=== PATIENT | female | born 1955 | race Caucasian/White ===

== ENCOUNTER → 2020-03-19 | Outpatient (CLI) | payer MEDICARE, OTHER ==
[~2020-03-19] MED LIST: LISI-334 PO; LISI10TA2 PO; NAPR220C4 PO; OXYM30SP25 NS
--- NOTE | 2020-03-19 12:05 | KCIC ---
EXAM: Lumbar spine MRI without contrast. HISTORY: Lower back pain. TECHNIQUE: Multiplanar, multisequence magnetic resonance imaging of the lumbar spine was performed without contrast. COMPARISON: None. FINDINGS: There is straightening of lumbar lordosis. There is minimal lumbar levoscoliosis. There is minimal anterolisthesis of L4 on S1. There is degenerative endplate remodeling with disc space narrowing, and osteophytosis primarily at the lower lumbar levels. There are multiple endplate Schmorl's nodes. There is no suspicious osseous lesion. There are few small incidental osseous hemangiomas. There is no fracture. The conus terminates at L1. At L1-L2, there is a shallow broad-based posterior central disc protrusion superimposed on a disc bulge and endplate remodeling. There is mild bilateral foraminal stenosis. At L2-L3, there is a disc bulge and endplate remodeling. There is mild bilateral facet arthropathy. There is no stenosis. At L3-L4, there is a shallow broad-based left paracentral disc protrusion and annular tear with 4 mm inferior extrusion. There is also a right foraminal to extra foraminal disc protrusion. These are superimposed on a disc bulge and endplate remodeling. There is mild bilateral facet arthropathy. There is mild bilateral foraminal stenosis with abutment of the exiting L3 nerve roots. There is mild central canal stenosis and effacement of the left lateral recess with abutment of the traversing left nerve roots. At L4-L5, there is a shallow broad-based paracentral to foraminal disc protrusion and annular tear superimposed on a disc bulge and endplate osteophytosis. There is mild bilateral facet arthropathy. There is mild right foraminal stenosis with abutment of the exiting right L4 nerve root. There is mild central canal stenosis with effacement of the right lateral recess and abutment the traversing right nerve roots. At L5-S1, there is a diffuse disc bulge and endplate osteophytosis with bilateral foraminal to extra foraminal disc osteophyte complexes. There is mild bilateral facet arthropathy. There is moderate right and severe left foraminal stenosis with abutment of the exiting left greater than right L5 nerve roots. There is mild central canal stenosis. IMPRESSION: Multilevel degenerative change involving the lumbar spine, described in detail above. This is associated with mild bilateral foraminal stenosis at L1-L2, mild bilateral foraminal and central canal stenosis and left lateral recess narrowing at L3-L4, mild right foraminal and central canal stenosis with narrowing of the right lateral recess at L4-L5 and moderate right and severe left foraminal and mild central canal stenosis at L5-S1. Electronically signed by: Sondra Sanz MD (03/19/2020 12:02 PM) [facility]
== END | disposition home or self-care (01) ==
LOC: KCIC MRI 09:48
PROVIDERS: ATTEND Family Medicine
DX: M47.817 Spondylosis without myelopathy or radiculopathy, lumbosacral region (principal); M40.46 Postural lordosis, lumbar region; M43.17 Spondylolisthesis, lumbosacral region; M25.78 Osteophyte, vertebrae; M51.46 Schmorl's nodes, lumbar region; M48.07 Spinal stenosis, lumbosacral region; M99.53 Intervertebral disc stenosis of neural canal of lumbar region
CPT/HCPCS: 72148

== ENCOUNTER → 2020-05-05 | Outpatient (CLI) | payer MEDICARE, OTHER ==
[~2020-05-05] MED LIST changes: +ACET325T9 PO; +IOHEXOL 180 MG/ML 10 ML VIAL. ONE; +methylPREDNISolone ACETATE 40 MG/ML VIAL. ONE; +methylPREDNISolone ACETATE 80 MG/ML VIAL. ONE
--- NOTE | 2020-05-05 13:01 | PDOC1 ---
INITIAL PAIN CONSULT DATE OF SERVICE: DOS: DATE: 05/05/20 TIME: 12:54 CHIEF COMPLAINT: Chief Complaint: Low back and left lower extremity pain HISTORY OF PRESENT ILLNESS: 64-year-old female presents history of pain low back left lower extremity for about 2 years not the result of any specific injury or accident that she is aware but is getting worse over time with increased pain with walking standing changing positions getting up from a seated position pain all the way to her left leg pressure with walking standing patient which is better with sitting and laying down generally does not awaken her from sleep at night does not affect her bowel bladder control does affect her ability to walk fairly significantly patient reports no overt muscular or motor loss but significant fatigability in the left leg with standing walking more than about 15 to 20 minutes patient has had some physical therapies in the past but nothing recently doing some stretching and strength and exercise on her own is still trying to walk daily although is becoming more more difficult. Patient did have MRI scan lumbar spine showing some significant degenerative changes with mild bilateral fo raminal stenosis L1 to foraminal and central canal stenosis left lateral recess narrowing at L3-4 mild right foraminal and central canal stenosis with narrowing of the right lateral recesses at L4-5 and moderate right and severe left foraminal and mild central canal stenosis at L5-S1. Patient rates her disability rating 0-10 10 being the worst as a 7 with family home responsibilit ies and occupational activities 6 with recreation through social activity to his self-care and to with life support activities. Patient scribes pain is in the low back and the left posterior gluteus posterior lateral thigh lateral anterior thigh anterior medial thigh medial lower leg and knee into the calf as well on the left side. Describes it as constant sharp shooting at times in the lower extremity tingling and burning also aching in the low back. PAST MEDICAL HISTORY: PMH: Cervical cancer status post chemotherapy and radiation, urinary stents PREVIOUS SURGERIES: Past Surgical Hx: Cataract extraction, kidney stent placements every 6 months, bowel perforation and colostomy with takedown 2001 CURRENT MEDICATIONS: Current Meds: Active Scripts Medications Dose Route/Sig Max Daily Dose Days Date Category Tylenol (Acetaminophen) 325 Mg Tablet 1-2 Tab PO QID 05/05/20 Reported ALLERGIES; Allergies: Coded Allergies: Penicillins (Verified Allergy, Unknown, Hives, 03/17/20) erythromycin base (Verified Adverse Reaction, Unknown, GI DISTRESS, 03/17/20) FAMILY HISTORY: Family Hx: Stroke in patient's sister SOCIAL HISTORY: Social Hx: Patient got drug alcohol does not smoke not use any illegal illicit recreational drugs is lives with her spouse lives locally in [facility] REVIEW OF SYSTEMS: ROS: Positive for those items mentioned in history of present illness, all systems are reviewed, otherwise negative, is complete full and well-documented on patient's chart PHYSICAL EXAM: VS: Blood pressure is 176/103 pulse 83 respirations 18 temperature 97.9 F height is 5 feet 1 inches weight is 180 pounds PE: PHYSICAL EXAMINATION: GENERAL: The patient is awake, alert, oriented, appropriate, very pleasant de meanor HEENT: Shows normocephalic, atraumatic. Extraocular movements are intact and symmetrical. Oral cavity: Mucous membranes moist and pink. Dentition is intact. NECK: Shows anterior throat supple without palpable lymphadenopathy noted. Swallow reflex symmetrical. CHEST: Shows normal on inspection. Breath sounds are clear bilaterally, no rales rhonchi or wheezes auscultated. HEART: Shows S1, S2 clear. No murmurs auscultated. ABDOMEN: Soft, nontender, nondistended obese. No palpable organomegaly is noted. No rebound or guarding demonstrated. BACK: Shows spine grossly in the midline. Normal-appearing cervical lordotic curvature. There is slightly increased thoracic kyphosis, some minor flattening of the lumbar lordotic curvature. Lumbar paraspinous muscles show symmetrical on inspection, on palpation shows some moderate tenderness diffusely throughout the upper, middle and lower distribution of the paraspinous muscles bilaterally and also into the lower thoracic paraspinous musculature, firm and tender, but without specific trigger points, without radiation of pain. The patient has good rotational motion of the lumbar spine, both laterally as well as extension and flexion without significant difficulty. No tenderness over the spinous processes, sacrum or sacroiliac regions. EXTREMITIES: Lower extremities show deep tendon reflexes 2+ in the patellar and tendo calcaneus tendons. Motor exam is 5 on a scale of 5 with right dorsiflexion, extension, quadriceps and hamstring flexion and 4/5 on the left. Peripheral pulses are 1+ posterior tibial. No peripheral edema is noted bilaterally. Lower extremities are warm and dry to touch, equal in color and appearance. Straight leg raise noted to be negative bilaterally. Gaenslen's and Rl's maneuvers are negative bilaterally as well. The patient is able to stand, stand on her toes without significant difficulty or loss of balance walks with a slightly favoring gait favoring the left lower extremity only mildly not use any assistive device such as canes or walkers to ambulate. SKIN: Shows warm and dry, good turgor. No edema. No sores, rashes or bruising throughout. IMPRESSION: Impression: 64-year-old female with 2-year history of low back left lower extremity pain in a radicular fashion MRI scan lumbar spine as noted History of cervical cancer Plan: Options discussed with patient including conservative medical management, physical therapies, interventional techniques. Patient would like to pursue interventional techniques we discussed a lumbar epidural steroid injection, using descriptions as well as anatomical models to describe the procedure. Risks were discussed including but not limited to: Bleeding, infection, possibility of epidural hematoma and subsequent neurological compromise, dural puncture, headaches, spinal cord and/or nerve damage, side effects of steroid medication, and poor results regarding pain control. Patient understands wished to proceed. Patient will return to the clinic in approximately 2 weeks for follow-up with calcis return appointment activity level and side effects to be aware of. Procedure is lumbar epidural steroid injection under local anesthetic using sterile prep and drape at the L4-5 level using C-arm fluoroscopic guidance in both AP and lateral views medications injected is 120 mg Depo-Medrol + 10 mL preservative-free normal saline and 2 mL contrast- condition at discharge is stable patient tolerated procedure well had no complications.. KIANA FORBES MD May 05, 2020 13:01
== END ==
LOC: PNCL 09:04
PROVIDERS: ATTEND Anesthesiology
DX: M48.07 Spinal stenosis, lumbosacral region (principal); C53.9 Malignant neoplasm of cervix uteri, unspecified; Z98.890 Other specified postprocedural states; Z88.0 Allergy status to penicillin; Z88.8 Allergy status to other drugs, medicaments and biological substances; Z79.899 Other long term (current) drug therapy
CPT/HCPCS: 62323; J1030; J1040; Q9965

== ENCOUNTER → 2020-05-19 | Outpatient (CLI) | payer MEDICARE, OTHER ==
--- NOTE | 2020-05-19 10:01 | PDOC ---
Progress Note - Pain Clinic Date of Service: DOS: DATE: 05/19/20 TIME: 09:57 Diagnosis: Dx: Lumbar radiculopathy with lumbar degenerative disease and lumbar spinal stenosis History or Present Illness: HPI: 64-year-old female returns follow-up status post lumbar epidural steroid injection x1. Patient reports about near 100% improvement in the low back and left lower extremity pain patient reports is very pleased with her progress has been increasing her distance walking doing household activities sleeping better at night doing work activities traveling with greater ease and comfort patient reports her pain is tingling aching mostly in the posterior left knee and anterior left knee but much better than it was patient reports her pain is a 2 on a scale of 10 is average over the past week 2 is worse 0 its least is a 2 today. Patient reports no new motor or sensory deficits no new bowel or bladder incontinence is increasing her activity with much greater ease and comfort without any new bowel or bladder incontinence or other complaints. Physical Exam: VS: Blood pressure is 161/85 pulse 68 respirations 18 temperature 98.2 F height is 5 foot 1 inches weight is 1 8 0 pounds PE: PHYSICAL EXAMINATION: GENERAL: The patient is awake, alert, oriented, appropriate, very pleasant demeanor HEENT: Shows normocephalic, atraumatic. Extraocular movements are intact and symmetrical. NECK: Shows anterior throat supple without palpable lymphadenopathy noted. Swallow reflex symmetrical. CHEST: Shows normal on inspection. Breath sounds are clear bilaterally, no rales rhonchi or wheezes. HEART: Shows S1, S2 clear. No murmurs auscultated. ABDOMEN: Soft, nontender, nondistended, obese. No palpable organomegaly is noted. No rebound or guarding demonstrated. BACK: Shows spine grossly in the midline. Normal-appearing cervical lordotic curvature. There is slightly increased thoracic kyphosis, some minor flattening of the lumbar lordotic curvature. Lumbar paraspinous muscles show symmetrical on inspection, on palpation shows some moderate tenderness diffusely but without specific trigger points, without radiation of pain. The patient has good rotational motion of the lumbar spine, both laterally as well as extension and flexion without significant difficulty. No tenderness over the spinous processes, sacrum or sacroiliac regions. EXTREMITIES: Lower extremities show deep tendon reflexes 2+ in the patellar and tendo calcaneus tendons. Motor exam is 5 on a scale of 5 with right dorsiflexion, extension, quadriceps and hamstring flexion and 4/5 on the left. Peripheral pulses are 1+ posterior tibial. No peripheral edema is noted bilaterally. Lower extremities are warm and dry to touch, equal in color and appearance. SKIN: Shows warm and dry, good turgor. No edema. No sores, rashes or bruising throughout. Procedure: Procedure: Options were discussed with the patient. Patient's old chart was reviewed as her current medication regimen updated current review of systems updated today as well. We will proceed with a second in the series lumbar epidural steroid injection today with fluoroscopic guidance. Risks were discussed including but not limited to: Bleeding, infection, possibility of epidural hematoma and sub sequent neurological compromise, dural puncture, headaches, spinal cord and/or nerve damage, side effects of steroid medication, and poor results regarding pain control. Patient understands wished to proceed. Patient will return to the clinic in approximately 2 weeks for follow-up, was counseled as to return appointment, activity level, and side effects to be aware of. Medication Injected: Med Injected: Procedure is lumbar epidural steroid injection under local anesthetic using sterile prep and drape at the L4-5 level using C-arm fluoroscopic guidance in both AP and lateral views medications injected is 120 mg Depo-Medrol + 10 mL preservative-free normal saline and 2 mL contrast- condition at discharge is stable patient tolerated procedure well had no complications. Condition at Discharge: Condition at Discharge: Condition at discharge is stable, patient tolerated procedure well and had no complications. KIANA FORBES MD May 19, 2020 10:01
== END ==
LOC: PNCL 09:25
PROVIDERS: ATTEND Anesthesiology
DX: M51.16 Intervertebral disc disorders with radiculopathy, lumbar region (principal); M48.061 Spinal stenosis, lumbar region without neurogenic claudication; Z88.0 Allergy status to penicillin; Z88.8 Allergy status to other drugs, medicaments and biological substances
CPT/HCPCS: 62323; J1030; J1040; Q9965

== ENCOUNTER → 2021-01-05 | Outpatient (CLI) | payer MEDICARE, OTHER ==
[~2021-01-05] MED LIST changes: -LISI-334 PO; +LISI10TA16 PO; -LISI10TA2 PO; +LISI20TA18 PO
--- NOTE | 2021-01-05 10:51 | PDOC ---
Progress Note - Pain Clinic Date of Service: DOS: DATE: 01/05/21 TIME: 10:48 Diagnosis: Dx: Lumbar radiculopathy with lumbar degenerative disc disease and lumbar spinal stenosis History or Present Illness: HPI: 65-year-old female returns to follow-up status post lumbar epidural steroid injections last seen May 19, 2020, patient had near 100% improvement until about the end of July where the pain began to return. Patient reports the pain is down the low back left lower extremity posterior gluteus lateral thigh anterior thigh medial thigh and into the medial knee on the left side patient reports the right knee is also painful but the left knee is worse patient reports her pain is across the back and the left leg described as sharp and shooting radiating in the left lower extremity worse with walking and standing better with sitting or laying down but still wakes her from sleep about once a night patient reports her pain is a 10 on scale 10 is worse over the past week 8 on average 3 displeasing is a 5 today patient reports initially doing much better distance walking doing household activities work activities travel with greater ease and comfort patient reports no new motor or sensory deficits no new bowel or bladder incontinence or other complaints. Physical Exam: VS: Blood pressure is 164/92 pulse 77 respirations 18 temperature 97.7 F weight is 180 pounds PE: PHYSICAL EXAMINATION: GENERAL: The patient is awake, alert, oriented, appropriate, very pleasant demeanor HEENT: Shows normocephalic, atraumatic. Extraocular movements are intact and symmetrical. Oral cavity: Mucous membranes moist and pink. NECK: Shows anterior throat supple without palpable lymphadenopathy noted. Swallow reflex symmetrical. CHEST: Shows normal on inspection. Breath sounds are clear bilaterally, no rales rhonchi or wheezes auscultated. HEART: Shows S1, S2 clear. No murmurs auscultated. ABDOMEN: Soft, nontender, nondistended, obese. No palpable organomegaly is noted. BACK: Shows spine grossly in the midline. Normal-appearing cervical lordotic curvature. There is slightly increased thoracic kyphosis, some minor flattening of the lumbar lordotic curvature. Lumbar paraspinous muscles show symmetrical on inspection, on palpation shows some moderate tenderness diffusely throughout the upper, middle and lower distribution of the paraspinous muscles, but without specific trigger points, without radiation of pain. The patient has good rotational motion of the lumbar spine, both laterally as well as extension and flexion without significant difficulty. EXTREMITIES: Lower extremities show deep tendon reflexes 2+ in the patellar and tendo calcaneus tendons. Motor exam is 5 on a scale of 5 with right dorsiflexion, extension, quadriceps and hamstring flexion and 4/5 on the left. Peripheral pulses are 1+ posterior tibial. No peripheral edema is noted bilaterally. Lower extremities are warm and dry to touch, equal in color and appearance. SKIN: Shows warm and dry, good turgor. No edema. No sores, rashes or bruising throughout. Procedure: Procedure: Options were discussed with the patient. Patient chart was reviewed as her current medication regimen updated current review of systems updated today as well. We will proceed with a first in the series lumbar epidural steroid ejections today with fluoroscopic guidance. Risks were discussed including but not limited to: Bleeding, infection, possibility of epidural hematoma and subsequent neurological compromise, dural puncture, headaches, spinal cord and/or nerve damage, side effects of steroid medication, and poor results regarding pain control. Patient understands and wished to proceed. Patient will return to clinic in approximate 2 weeks for follow-up, was counseled as to return appointment activity level and side effects to be aware of. Medication Injected: Med Injected: Procedure is lumbar epidural steroid injection under local anesthetic using sterile prep and drape at the L4-5 level using C-arm fluoroscopic guidance in both AP and lateral views medications injected is 120 mg Depo-Medrol +10mL preservative-free normal saline and 2 mL contrast- condition at discharge is stable patient tolerated procedure well had no complications. Condition at Discharge: Condition at Discharge: Condition at discharge is stable, patient tolerated procedure well and had no complications. KIANA FORBES MD Jan 05, 2021 10:51
--- NOTE | 2021-01-05 10:51 | PDOC4 ---
PROCEDURE Procedure Patient was consented for lumbar epidural steroid injection. Risks were dis cussed including but not limited to: Bleeding, infection, possibility of epidural hematoma and subsequent neurological compromise, dural puncture, headaches, spinal cord and/or nerve damage, side effects of steroid medication, and poor results regarding pain control. Patient understands and wished to proceed. Procedure is lumbar epidural steroid injection under local anesthetic using sterile prep and drape at the L4-5 level using C-arm fluoroscopic guidance in both AP and lateral views medications injected is 120 mg Depo-Medrol +10mL preservative-free normal saline and 2 mL contrast- condition at discharge is stable patient tolerated procedure well had no complications. KIANA FORBES MD Jan 05, 2021 10:51
== END | disposition home or self-care (01) ==
LOC: PNCL 10:03
PROVIDERS: ATTEND Anesthesiology
DX: M51.16 Intervertebral disc disorders with radiculopathy, lumbar region (principal); M48.061 Spinal stenosis, lumbar region without neurogenic claudication; I10 Essential (primary) hypertension; Z88.0 Allergy status to penicillin; Z88.8 Allergy status to other drugs, medicaments and biological substances; Z79.899 Other long term (current) drug therapy; Z98.890 Other specified postprocedural states; Z85.41 Personal history of malignant neoplasm of cervix uteri; Z86.2 Personal history of diseases of the blood and blood-forming organs and certain disorders involving the immune mechanism
CPT/HCPCS: 62323; J1030; J1040; Q9965

== ENCOUNTER → 2021-03-31 | Outpatient (CLI) | payer MEDICARE, OTHER ==
[~2021-03-31] MED LIST changes: -methylPREDNISolone ACETATE 40 MG/ML VIAL. ONE
--- NOTE | 2021-03-31 08:24 | PDOC ---
Progress Note - Pain Clinic Date of Service: DOS: DATE: 03/31/21 TIME: 08:21 Diagnosis: Dx: Lumbar radiculopathy with lumbar degenerative disc disease and lumbar spinal stenosis History or Present Illness: HPI: 65-year-old female returns for follow-up status post lumbar epidural steroid injection last seen January 05, 2021. Patient did very well but 90% improvement for almost 3 months with pain after reducing significantly in the low back and left lower extremity patient reports now has new finding of right sided leg pain as w ell the posterior gluteus posterior lateral thigh lateral anterior thigh and medial thigh again somewhat still worse on the left but in the right side now which is new patient reports she has had feelings of instability when she is walking but no actual falling or motor loss patient reports her pain is a 7 on scale 10 is worst 7 on average 3 at its least and is a 7 today patient reports that sharp and aching in the low back again and initially did very well with increased distance walking doing household activities work activities travel with greater ease and comfort sleeping better at night patient reports still better with sitting or laying down does not generally awaken her from sleep at night. Patient reports no bowel or bladder incontinence no motor or sensory deficits. Physical Exam: VS: Blood pressure is 204 117 pulse 93 respirations 18 temperature 98.3 F height is 5 foot 1 his weight is 178 pounds PE: PHYSICAL EXAMINATION: GENERAL: The patient is awake, alert, oriented, appropriate, very pleasant in demeanor HEENT: Shows normocephalic, atraumatic. Extraocular movements are intact and symmetrical. Oral cavity: Mucous membranes moist and pink. NECK: Shows anterior throat supple without palpable lymphadenopathy noted. Swallow reflex symmetrical. CHEST: Shows normal on inspection. Breath sounds are clear bilaterally, no rales or. HEART: Shows S1, S2 clear. No murmurs auscultated. ABDOMEN: Soft, nontender, nondistended, obese. No palpable organomegaly is noted. BACK: Shows spine grossly in the midline. Normal-appearing cervical lordotic curvature. There is slightly increased thoracic kyphosis, some minor flattening of the lumbar lordotic curvature. Lumbar paraspinous muscles show symmetrical on inspection, on palpation shows some moderate tenderness diffusely throughout the upper, middle and lower distribution of the paraspinous muscles, but without specific trigger points, without radiation of pain. The patient has good rotational motion of the lumbar spine, both laterally as well as extension and flexion without significant difficulty. EXTREMITIES: Lower extremities show deep tendon reflexes 2+ in the patellar and tendo calcaneus tendons. Motor exam is 5 on a scale of 5 with right dorsi flexion, extension, quadriceps and hamstring flexion and 4/5 on the left. Peripheral pulses are 1 posterior tibial. No peripheral edema is noted bilaterally. Lower extremities are warm and dry to touch, equal in color and appearance. SKIN: Shows warm and dry, good turgor. No edema. No sores, rashes or bruising throughout. Procedure: Procedure: Options discussed with the patient. Patient chart was reviewed as her current medication regimen updated current review of systems updated today as well. We will proceed with lumbar epidural steroid injection today with fluoroscopic guidance. Risks were discussed including but not limited to: Bleeding, infection, possibility of epidural hematoma and subsequent neurological comp romise, dural puncture, headaches, spinal cord and/or nerve damage, side effects of steroid medication, and poor results regarding pain control. Patient understands and wished to proceed. Patient will return to the clinic in approximate 2 weeks for follow-up, was counseled as to return appointment, activity level, and side effects to be aware of. Medication Injected: Med Injected: Procedure is lumbar epidural steroid injection under local anesthetic using sterile prep and drape at the L4-5 level using C-arm fluoroscopic guidance in both AP and lateral views medications injected is 120 mg Depo-Medrol +10mL preservative-free normal saline and 2 mL contrast- condition at discharge is stable patient tolerated procedure well had no complications. Condition at Discharge: Condition at Discharge: Condition at discharge is stable, patient already the procedure well and had no complications. KIANA FORBES MD Mar 31, 2021 08:24
--- NOTE | 2021-03-31 08:25 | PDOC4 ---
Procedure Note: ICD 10 Code: ICD 10 Code: M54.16 M 48.06 M51.36 Procedure Note: Patient was consented for lumbar epidural steroid injection with fluoroscopic guidance. Risks were discussed including but not limited to: Bleeding, infection, possibility of epidural hematoma and subsequent neurological compromise, dural puncture, headaches, spinal cord and/or nerve damage, side effects of steroid medication, and poor results regarding pain control. Patient understands and wished to proceed. Procedure is lumbar epidural steroid injection under local anesthetic using jamilah rile prep and drape at the L4 5 level using C-arm fluoroscopic guidance in both AP and lateral views medications injected is 120 mg Depo-Medrol +10mL preservative-free normal saline and 2 mL contrast- condition at discharge is stable patient tolerated procedure well had no complications. KIANA FORBES MD Mar 31, 2021 08:25
== END ==
LOC: PNCL 07:36
PROVIDERS: ATTEND Anesthesiology
DX: M51.16 Intervertebral disc disorders with radiculopathy, lumbar region (principal); M48.061 Spinal stenosis, lumbar region without neurogenic claudication
CPT/HCPCS: 62323; J1040; Q9965